=== PATIENT | male | born 1975 | race Caucasian/White ===

== ENCOUNTER 2020-10-11 17:14 | Emergency (ER) | payer OTHER ==
[~2020-10-11] VITALS: Ht 170.2 cm; Wt 85.7 kg
[2020-10-11] MEDS ORDERED: LISI5 (18:31)
[2020-10-11] MEDS ORDERED: CYCLOBENZAPRINE5 MG PO (18:59)
[2020-10-11] MEDS ORDERED: IBUP600 PO (18:59)
== END 2020-10-11 19:12 | disposition home or self-care (01) ==
LOC: ER 17:14
DX: S29.012A Strain of muscle and tendon of back wall of thorax, initial encounter (principal); Z79.899 Other long term (current) drug therapy; F17.210 Nicotine dependence, cigarettes, uncomplicated; W07.XXXA Fall from chair, initial encounter
CPT/HCPCS: 99283; A9270

== ENCOUNTER 2023-01-18 20:22 | Emergency (ER) | payer OTHER ==
[~2023-01-18] VITALS: Ht 165.1 cm; Wt 77.1 kg
[~2023-01-18 20:22] MED LIST: AMOCLA875 PO; CYCLOBENZAPRINE5 MG PO; IBUP600 PO; LISI5
[2023-01-18 20:25] VITALS: BP 169/116
== END 2023-01-18 20:36 | disposition home or self-care (01) ==
LOC: ER 20:22
DX: S16.1XXA Strain of muscle, fascia and tendon at neck level, initial encounter (principal); V63.5XXA Driver of heavy transport vehicle injured in collision with car, pick-up truck or van in traffic accident, initial encounter; F17.210 Nicotine dependence, cigarettes, uncomplicated; Z88.5 Allergy status to narcotic agent; Z88.6 Allergy status to analgesic agent; Z79.899 Other long term (current) drug therapy
CPT/HCPCS: 99283

== ENCOUNTER 2023-01-20 16:57 | Emergency (ER) | payer OTHER ==
[~2023-01-20] VITALS: Ht 170.2 cm; Wt 79.8 kg
[2023-01-20 17:08] VITALS: BP 155/126
== END 2023-01-20 19:20 | disposition home or self-care (01) ==
LOC: ER 16:57
DX: R07.89 Other chest pain (principal); F17.210 Nicotine dependence, cigarettes, uncomplicated; Z88.5 Allergy status to narcotic agent; Z88.8 Allergy status to other drugs, medicaments and biological substances
CPT/HCPCS: 71101; 96372; 99283-25; J1885

== ENCOUNTER 2023-04-01 12:37 | Emergency (ER) | payer OTHER ==
[~2023-04-01] VITALS: Ht 170.2 cm; Wt 74.8 kg
[2023-04-01 13:06] VITALS: BP 160/93
[2023-04-01] MEDS ORDERED: CEPH500 PO (13:31)
== END 2023-04-01 13:39 | disposition home or self-care (01) ==
LOC: ER 12:37
DX: L03.221 Cellulitis of neck (principal); F17.210 Nicotine dependence, cigarettes, uncomplicated
CPT/HCPCS: 99282

== ENCOUNTER 2023-05-28 15:55 | Emergency (ER) | payer OTHER ==
[~2023-05-28] VITALS: Ht 170.2 cm; Wt 83.9 kg
[~2023-05-28 15:55] MED LIST changes: +CEPH500 PO
[2023-05-28 16:14] VITALS: BP 172/106
[2023-05-28] MEDS ORDERED: AMOCLA875 PO (16:33)
== END 2023-05-28 17:03 | disposition home or self-care (01) ==
LOC: ER 15:55
DX: K04.7 Periapical abscess without sinus (principal); K02.9 Dental caries, unspecified; F17.210 Nicotine dependence, cigarettes, uncomplicated; Z88.5 Allergy status to narcotic agent; Z88.6 Allergy status to analgesic agent
CPT/HCPCS: 41800; 99283-25

== ENCOUNTER 2024-06-18 18:04 | Emergency (ER) | payer OTHER ==
[~2024-06-18] VITALS: Ht 165.1 cm; Wt 90.7 kg
[2024-06-18 18:10] VITALS: BP 171/108
== END 2024-06-18 18:24 | disposition left against medical advice (07) ==
LOC: ER 18:04
DX: R22.31 Localized swelling, mass and lump, right upper limb (principal); Z53.21 Procedure and treatment not carried out due to patient leaving prior to being seen by health care provider
CPT/HCPCS: 99281

== ENCOUNTER 2025-03-15 19:35 | Emergency (ER) | payer OTHER ==
[~2025-03-15] VITALS: Ht 170.2 cm; Wt 81.7 kg
[2025-03-15] MEDS ORDERED: Dorzolamide/Timolol Opth Soln 10 ML RIGHTEYE ONE (20:20)
[2025-03-15] MEDS ORDERED: Brimonidine Tartrate 0.2% Opth 5 ml RIGHTEYE ONE (20:20)
[2025-03-15 22:00] VITALS: BP 142/73
[2025-03-15] MEDS ORDERED: Diamox500 MG PO (22:12)
== END 2025-03-15 22:19 | disposition home or self-care (01) ==
LOC: ER 19:35
DX: H40.211 Acute angle-closure glaucoma, right eye (principal); F17.210 Nicotine dependence, cigarettes, uncomplicated; Z88.8 Allergy status to other drugs, medicaments and biological substances
CPT/HCPCS: 96374; 99283-25; A9270; J1120